=== PATIENT | male | born 1960 | race Caucasian/White ===

== ENCOUNTER 2016-10-26 08:57 | Day surgery (SDC) | payer BC ==
[2016-10-26] MEDS ORDERED: MIDAZOLAM HCL 2MG/2ML VIAL IV ONE (14:00)
[2016-10-26] MEDS ORDERED: PROPOFOL 10 MG/ML VIAL IV ONE (14:00)
[2016-10-26] MEDS ORDERED: LIDOCAINE 2% MDV (20MG/ML) 20ML VIAL IV ONE (14:00)
--- NOTE | 2016-10-30 15:05 | Operative Note ---
DATE OF SURGERY: 10/26/2016 SURGEON: Klye Beltrán MD OPERATION: COLONOSCOPY. INDICATIONS: This is a 56-year-old male with history of intermittent episodes of rectal bleeding who presented for colonoscopy. POSTOPERATIVE DIAGNOSES: 1. Left-sided colonic diverticulosis. 2. Grade 2 internal hemorrhoids. ANESTHESIA: Sedation is per Anesthesia. Pulse oximetry was monitored throughout the procedure to maintain O2 saturation of 90% or greater. Supplemental oxygen was administered via nasal cannula. Cardiac and vital signs were monitored throughout the duration of the procedure, and they were stable. The procedure of colonoscopy and risks and alternatives of the procedure, including the risk of bleeding and perforation, among others, were explained to the patient who voiced understanding and agreed to have the procedure done. Physical examination was performed, and the patient was found stable for sedation. PROCEDURE: The patient was placed in the left lateral position. Sedation was initiated. A digital rectal exam was performed and showed some mild external hemorrhoids with no palpable rectal masses. An Olympus PCF-180AL colonoscope was then inserted into the rectum under direct visualization. It was advanced to the cecum without difficulty. The ileocecal valve and appendiceal orifice were identified and photographed. The colonic mucosa was carefully examined upon introduction of the colonoscope. There were scattered diverticula noted in the sigmoid and descending colon. There were no other lesions. The colonoscope was then withdrawn while carefully examining the colonic mucosal surfaces. No other lesions were noted. In the rectum, retroflexion was performed and grade 1 internal hemorrhoids were noted. The colonoscope was then withdrawn and the procedure was terminated. The patient tolerated the procedure well without any immediate complications. He remained with stable vital signs and was transferred to the recovery room. RECOMMENDATIONS: 1. The patient should be on a high-fiber diet. 2. The patient is to have a repeat colonoscopy for surveillance in 10 years. Thank you for allowing me to participate in the care of your patient. Kyle Beltrán MD CC: Flora MAX
== END 2016-10-26 11:15 | disposition home or self-care (01) ==
LOC: HOP 08:57
PROVIDERS: ATTEND Internal Medicine Gastroenterology
DX: K57.30 Diverticulosis of large intestine without perforation or abscess without bleeding (principal); K64.1 Second degree hemorrhoids

== ENCOUNTER 2018-01-16 07:51 | Day surgery (SDC) | payer BC ==
[~2018-01-16 07:51] MED LIST: ACETAMINOPHEN 1,000 MG/100 ML BTL IV ONE; CEFAZOLIN 2 Gram 2 GM/50 ML BAG IVPB ONE
[2018-01-16] MEDS ORDERED: LIDOCAINE 2% MDV (20MG/ML) 20ML VIAL IV ONE (07:52)
[2018-01-16] MEDS ORDERED: ONDANSETRON HCL IV 4 MG/2 ML VIAL IVP ONE (07:52)
[2018-01-16] MEDS ORDERED: PROPOFOL 10 MG/ML VIAL IV ONE (07:52)
[2018-01-16] MEDS ORDERED: BUPIVACAINE 0.5% (5MG/ML) PF 30ML VIAL IVP ONE (07:52)
[2018-01-16] MEDS ORDERED: FENTANYL PF 100MCG/2ML VIAL IV ONE (07:52)
[2018-01-16] MEDS ORDERED: DESFLURANE 240 ML BTL INH ONE (07:52)
[2018-01-16] MEDS ORDERED: EPINEPHRINE 1 MG/ML AMPUL SQ ONE (07:52)
[2018-01-16] MEDS ORDERED: MIDAZOLAM HCL 2MG/2ML VIAL IV ONE (07:52)
[2018-01-16] MEDS ORDERED: BUPIVACAINE LIPOSOME/PF 133MG/10ML VIAL IV ONE (14:43)
--- NOTE | 2018-01-17 09:30 | Operative Note ---
DATE OF SURGERY: 01/16/2018 Surgeon: Jordin Roman DO PREOPERATIVE DIAGNOSES: 1. Tear of the right rotator cuff. 2. Impingement syndrome, right shoulder. POSTOPERATIVE DIAGNOSES: 1. Tear of the right rotator cuff. 2. Impingement syndrome, right shoulder. 3. Tear and medial dislocation of the biceps tendon, right shoulder. OPERATION: 1. Arthroscopic debridement of the right rotator cuff. 2. Arthroscopic subacromial decompression and acromioplasty. 3. Arthroscopic tenotomy of the biceps tendon, right shoulder. DESCRIPTION OF PROCEDURE: This 57-year-old male was taken to the operating room and placed in the supine position on the operating room table. General anesthesia was induced, and the right shoulder was prepped and draped in the usual sterile fashion after he had been placed in the beach chair position with all bony prominences well padded and head well secured. A posterior portal was established in the glenohumeral joint and initial evaluation of the joint demonstrated complete disruption of the supraspinatus and infraspinatus tendon with retraction. There was also medial dislocation of the biceps tendon with marked tearing of the fibers also being identified, and this did extend into the bicipital root. The anterior portal was established in the right shoulder and debridement of the rotator cuff from the undersurface was performed. We also performed tenotomy of the biceps tendon. The scope was then placed in the subacromial space and thorough subacromial decompression and acromioplasty was performed. The leading edge of the tendon was identified and we could advance this very, very little. Marked retraction and scarring and atrophy of the supraspinatus was present proximal to the glenoid. We debrided the torn surface of the rotator cuff as much as possible but felt that repair was impossible and that the function would be relatively good without any further attempt at repair of his shoulder. The wound was then irrigated and suctioned. The instruments were removed. The portals were closed with 4-0 nylon suture. Sterile dressings were applied. The patient was taken to the recovery room in satisfactory condition. GROSS PATHOLOGY: This patient had marked retraction of the supraspinatus and infraspinatus tendon. There was marked atrophy in the supraspinatus. This retraction was medial to the glenohumeral joint. There was also a medial dislocation and marked tearing of the biceps tendon as described above. CC: DONNIE MUNSON D.O. MTDRosa Maria
== END 2018-01-16 11:20 | disposition home or self-care (01) ==
LOC: SUR 07:51
PROVIDERS: ATTEND Orthopaedic Surgery
DX: M75.121 Complete rotator cuff tear or rupture of right shoulder, not specified as traumatic (principal); M75.41 Impingement syndrome of right shoulder; S46.211A Strain of muscle, fascia and tendon of other parts of biceps, right arm, initial encounter
CPT/HCPCS: 29823; 29828; 01630; J2405; J3010; J0690; C9290; J0171